=== PATIENT | female | born 1950 | race Caucasian/White ===

== ENCOUNTER 2017-10-03 03:18 | Day surgery (SDC) | payer MEDICARE | END 2017-10-03 22:48 | disposition home or self-care (01) | LOC: MOI US 03:18 | PROC: 0HBV3ZX Excision of Bilateral Breast, Percutaneous Approach, Diagnostic (ICD-10-PCS; principal; 2017-10-03) | DX: D24.1 Benign neoplasm of right breast (principal); N60.92 Unspecified benign mammary dysplasia of left breast; N60.82 Other benign mammary dysplasias of left breast; N60.81 Other benign mammary dysplasias of right breast | CPT/HCPCS: 19083; 19084; 77066; A4648 ==

== ENCOUNTER 2019-05-15 11:48 | Day surgery (SDC) | payer OTHER ==
[~2019-05-15] VITALS: Ht 154.9 cm; Wt 77.2 kg
[~2019-05-15 11:48] MED LIST: ALBU90OI INH; BREO ELLIPTA 11 EACH INH; FIBER GUMMIES1 EACH PO; FLUT1DIS2; Lisinopril2.5 MG PO; MONT10T PO; Multivitamin1 EAC1 PO; PEPCID40 MG; Sudogest60 MG
--- NOTE | 2019-05-15 12:53 | NUR ---
Ambulatory in Day SurgeryPatient states colon prep results clear. History, Chart, Medications and Allergies reviewed before start of procedure.Lungs clear T/O to Auscultation. Pre-Op teaching done. Pt verbalizes understanding. Patient States Post-Procedure ride home has been arranged.
--- NOTE | 2019-05-15 13:38 | NUR ---
05/15/19 1338 Keely Lezama PATIENT DETERMINED TO BE ASA APPROPRIATE FOR PROPOFOL SEDATION PRIOR TO START OF PROCEDURE BY DR. PIERRE. 3-LEAD EKG REVIEWED WITH PHYSICIAN PRIOR TO START OF PROCEDURE. PATIENT CONFIRMS NPO STATUS AND AGREES WITH SCHEDULED PROCEDURE. History, Chart, Medications and Allergies reviewed before start of procedure. O2 VIA N/C INTACT THROUGHOUT SEDATION/PROCEDURE, 4L.MONITOR INTACT WITH CONTINUOUS PULSE OXIMETRY AND INTERMITTENT BP.
== END 2019-05-15 14:57 | disposition home or self-care (01) ==
LOC: ORSCMMR 11:48 → ORD 13:45 → ORSCMMR 13:45
PROVIDERS: Student in an Organized Health Care Education/Training Program
PROC: 0DBM8ZX Excision of Descending Colon, Via Natural or Artificial Opening Endoscopic, Diagnostic (ICD-10-PCS; principal; 2019-05-15 13:45)
PROC: 0DBN8ZX Excision of Sigmoid Colon, Via Natural or Artificial Opening Endoscopic, Diagnostic (ICD-10-PCS; principal; 2019-05-15 13:45)
DX: R19.5 Other fecal abnormalities (principal); K63.5 Polyp of colon; K57.30 Diverticulosis of large intestine without perforation or abscess without bleeding; K64.8 Other hemorrhoids; I10 Essential (primary) hypertension; Z79.899 Other long term (current) drug therapy
CPT/HCPCS: 88305; J2704; J7120

== ENCOUNTER 2021-08-28 09:44 | Day surgery (SDC) | payer OTHER ==
[~2021-08-28 09:44] MED LIST changes: -FLUT1DIS2; +FLUT1DIS2 INH
[2021-09-03] MEDS ORDERED: Calcium Carbon500 MG PO (12:27)
[2021-09-03] MEDS ORDERED: ZYRTEC10 M2 PO (12:27)
[2021-09-03] MEDS ORDERED: VITAMIN B125000 MC1 PO (12:28)
[2021-09-03] MEDS ORDERED: DICLOFENAC SOD100 GM TOP (12:28)
[2021-09-03] MEDS ORDERED: DOCU100 PO (12:28)
[2021-09-03] MEDS ORDERED: NYSTRIT TOP (12:30)
[2021-09-03] MEDS ORDERED: HYDR1TAB94 PO (12:30)
[2021-09-03] MEDS ORDERED: GABA300 PO (12:30)
[2021-09-03] MEDS ORDERED: MIRALAX1712 PO (12:31)
[2021-09-03] MEDS ORDERED: Crestor20 MG PO (12:35)
== END 2021-08-28 22:36 | disposition home or self-care (01) ==
LOC: ORSCMMR 09:44 → MOI US 09:44 → ORSCMMR 10:15 → MOI US 22:36 → ORSCMMR 22:42
DX: N63.10 Unspecified lump in the right breast, unspecified quadrant (principal); Z80.3 Family history of malignant neoplasm of breast
CPT/HCPCS: 19285; 77065; A4648

== ENCOUNTER 2021-09-08 07:10 | Day surgery (SDC) | payer OTHER ==
[~2021-09-08] VITALS: Ht 152.4 cm; Wt 75.4 kg
[~2021-09-08 07:10] MED LIST changes: +Calcium Carbon500 MG PO; +Crestor20 MG PO; +DICLOFENAC SOD100 GM TOP; +DOCU100 PO; +GABA300 PO; +HYDR1TAB94 PO; +MIRALAX1712 PO; +NYSTRIT TOP; +VITAMIN B125000 MC1 PO; +ZYRTEC10 M2 PO
--- NOTE | 2021-09-08 08:12 | NUR ---
History, Chart, Medications and Allergies reviewed before start of procedure. Patient States Post-Procedure ride home has been arranged.
--- NOTE | 2021-09-08 11:34 | NUR ---
Dressing to procedure site clean, dry, intact with no visible drainage, swelling, erythema or bruising noted. Discharge instructions reviewed with patient. Patient verbalizes understanding. Copy given to patient to take home. Discharged via wheelchair to private car for ride home.
== END 2021-09-08 11:36 | disposition home or self-care (01) ==
LOC: ORSCMMR 07:10 → ORD 08:45 → ORSCMMR 08:45
PROVIDERS: Surgery
PROC: 0HBT0ZX Excision of Right Breast, Open Approach, Diagnostic (ICD-10-PCS; principal; 2021-09-08 08:45)
DX: D05.11 Intraductal carcinoma in situ of right breast (principal); Z80.3 Family history of malignant neoplasm of breast; I10 Essential (primary) hypertension; J45.909 Unspecified asthma, uncomplicated; K21.9 Gastro-esophageal reflux disease without esophagitis; Z79.899 Other long term (current) drug therapy
CPT/HCPCS: 88307; J1100; J2250; J2370; J2405; J2704; J3010; J7120

== ENCOUNTER → 2022-07-12 | Outpatient (CLI) | payer OTHER | END | disposition home or self-care (01) | LOC: LAB SHORT 16:06 → LAB 16:06 | DX: N39.0 Urinary tract infection, site not specified (principal) | CPT/HCPCS: 87086 ==

== ENCOUNTER → 2023-02-05 | Outpatient (CLI) | payer OTHER | END | disposition home or self-care (01) | LOC: LAB 09:40 → LAB SHORT 09:40 | DX: N39.0 Urinary tract infection, site not specified (principal) | CPT/HCPCS: 87077; 87086; 87186 ==

== ENCOUNTER 2023-02-09 18:15 | Emergency (ER) | payer OTHER ==
[~2023-02-09] VITALS: Ht 154.9 cm; Wt 72.1 kg
[2023-02-09 19:06] LABS: BASOPHILS ABSOLUTE AUTO 0.02 K/mm3 (0.00-0.23); BASOPHILS PERCENT AUTO 0 % (0-2); EOSINOPHILS ABSOLUTE AUTO 0.05 K/mm3 (0.00-0.68); EOSINOPHILS PERCENT AUTO 1 % (0-6); Hematocrit 39.2 % (33.0-51.0); IMMATURE GRAN ABSOLUTE AUTO 0.03 K/mm3 (0.00-0.10); IMMATURE GRAN PERCENT AUTO 0 % (0-1); LYMPHOCYTES PERCENT AUTO 5 % (21-46); MONOCYTES PERCENT AUTO 13 % (4-13); Mean Corpuscular HGB 31.1 pg (26.0-34.0); Mean Corpuscular HGB Conc 33.2 g/dL (31.5-36.5); Mean Corpuscular Volume 94 fL (80-100); Mean Platelet Volume 10.1 fL (9.1-12.4); NEUTROPHILS ABSOLUTE AUTO 7.21 K/mm3 (1.96-9.15); NEUTROPHILS PERCENT AUTO 82 % (41-73); Platelet Count 119 K/mm3 (150-400); RDW Coefficient Variation 12.3 % (11.7-14.2); RDW Standard Deviation 42.5 fL (35.1-46.3); Red Blood Cell Count 4.18 M/mm3 (3.80-5.20); White Blood Cell Count 8.81 K/mm3 (4.00-11.30)
[2023-02-09 19:24] LABS: Albumin, Blood 3.7 g/dL (3.4-5.0); Albumin/Globulin Ratio 0.9 (0.8-1.8); Bilirubin, Total 0.5 mg/dL (0.1-1.0); Bun/Creatinine Ratio 25.2 (12.0-20.0); Calcium, Blood 8.8 mg/dL (8.5-10.1); Creatinine, Blood 0.87 mg/dL (0.40-1.00); Globulin, Blood 3.9 g/dL (2.2-4.0); Potassium, Blood 3.8 mmol/L (3.5-5.5); Total Protein, Blood 7.6 g/dL (6.4-8.2)
[2023-02-09 23:24] LABS: Magnesium, Blood 2.3 mg/dL (1.6-2.4); Phosphorus, Blood 1.8 mg/dL (2.5-4.9)
[2023-02-10 00:57] VITALS: BP 146/77
[2023-02-10] MEDS ORDERED: ACET500 PO (00:58)
[2023-02-10] MEDS ORDERED: Ibuprofen600 MG PO (00:58)
== END 2023-02-10 01:17 | disposition home or self-care (01) ==
LOC: ER 18:15
PROVIDERS: Student in an Organized Health Care Education/Training Program
DX: U07.1 COVID-19 (principal); E86.0 Dehydration
CPT/HCPCS: 71046; 80053; 83605; 83690; 83735; 84100; 84484; 85025; 85379; 93005; 93010; 96374; 99284-25; A9270; J1100

== ENCOUNTER → 2023-10-19 | Outpatient (CLI) | payer OTHER ==
[~2023-10-19] MED LIST changes: +ACET500 PO; +ANASTROZOLE1 M7; +Ibuprofen600 MG PO; +ROPI.25; +Ventolin5 MG/1 ML
== END | disposition home or self-care (01) ==
LOC: LAB SHORT 15:46 → LAB 15:46
DX: N39.0 Urinary tract infection, site not specified (principal)
CPT/HCPCS: 87086

== ENCOUNTER 2024-04-17 12:33 | Emergency (ER) | payer OTHER ==
[~2024-04-17] VITALS: Ht 154.9 cm; Wt 68.0 kg
[2024-04-17 13:07] VITALS: BP 158/85
[2024-04-17 13:39] LABS: Source, Urine Clean Catch
[2024-04-17 13:56] LABS: Appearance, Urine Hazy (Clear); Blood, Urine 1+ (Neg); Glucose Qualitative, Urine Neg (Neg); Ketones, Urine Neg (Neg); Leukocyte Esterase, Urine 3+ (Neg); Nitrite, Urine Pos (Neg); Protein, Urine 2+ (Neg); Urobilinogen, Urine 4+ (Normal)
[2024-04-17 14:02] LABS: Bilirubin, Urine 3+ (Neg); Color, Urine Orange (P-Yellow)
[2024-04-17 14:08] LABS: Red Blood Cells, Urine 0-2 /hpf (0-2); White Blood Cells, Urine 25-50 /hpf (0-5)
[2024-04-17 14:09] LABS: Bacteria Many /hpf; Hyaline Casts 0-2 /lpf (0-2); Squamous Epithelial Cells Few /hpf (Few)
[2024-04-17] MEDS ORDERED: CEFD300 PO (14:16)
== END 2024-04-17 14:29 | disposition home or self-care (01) ==
LOC: ER 12:33
PROVIDERS: Physician Assistant
DX: N39.0 Urinary tract infection, site not specified (principal); Z79.899 Other long term (current) drug therapy
CPT/HCPCS: 81001; 87077; 87086; 87186; 99283

== ENCOUNTER → 2024-05-01 | Outpatient (CLI) | payer OTHER ==
[~2024-05-01] MED LIST changes: +CEFD300 PO
== END ==
LOC: LAB 09:32 → LAB SHORT 09:32
DX: N39.0 Urinary tract infection, site not specified (principal)
CPT/HCPCS: 87077; 87086; 87186

== ENCOUNTER → 2024-05-21 | Outpatient (CLI) | payer OTHER | LOC: LAB SHORT 17:49 → LAB 17:49 | DX: N39.0 Urinary tract infection, site not specified (principal) | CPT/HCPCS: 87086 ==

== ENCOUNTER → 2024-06-27 | Outpatient (CLI) | payer OTHER ==
[2024-06-27 15:06] LABS: Bacterial Vaginosis PCR Negative (NEGATIVE); Candida Group, PCR NOT DETECTED (NOT DETECT); Candida glabrata-krusei, PCR NOT DETECTED (NOT DETECT)
[2024-06-29 17:47] LABS: MYCOPLASMA GENITALIUM BY PCR Not Detected; MYCOPLASMA HOMINIS BY PCR Not Detected; UREAPLASMA MYCOPLASMA SOURCE Urine; UREAPLASMA PARVUM BY PCR Not Detected; UREAPLASMA UREALYTICUM BY PCR Not Detected
== END ==
LOC: LAB 11:25 → LAB SHORT 11:25
PROVIDERS: Advanced Practice Midwife
DX: N76.0 Acute vaginitis (principal); R30.0 Dysuria
CPT/HCPCS: 81515; 87086; 87563; 87798

== ENCOUNTER → 2025-01-25 | Outpatient (CLI) | payer OTHER | END | disposition home or self-care (01) | LOC: LAB SHORT 15:19 → LAB 15:19 | DX: R30.0 Dysuria (principal) | CPT/HCPCS: 87077; 87086; 87186 ==

== ENCOUNTER 2025-03-17 20:20 | Emergency (ER) | payer OTHER ==
[~2025-03-17] VITALS: Ht 154.9 cm; Wt 68.0 kg
[2025-03-17 20:48] LABS: BASOPHILS ABSOLUTE AUTO 0.02 K/mm3 (0.00-0.23); BASOPHILS PERCENT AUTO 0 % (0-2); EOSINOPHILS ABSOLUTE AUTO 0.12 K/mm3 (0.00-0.68); EOSINOPHILS PERCENT AUTO 2 % (0-6); Hematocrit 41.4 % (33.0-51.0); Hemoglobin 13.8 g/dL (11.5-16.0); IMMATURE GRAN ABSOLUTE AUTO 0.01 K/mm3 (0.00-0.10); IMMATURE GRAN PERCENT AUTO 0 % (0-1); LYMPHOCYTES ABSOLUTE AUTO 1.93 K/mm3 (0.84-5.20); LYMPHOCYTES PERCENT AUTO 25 % (21-46); MONOCYTES ABSOLUTE AUTO 0.80 K/mm3 (0.16-1.47); MONOCYTES PERCENT AUTO 10 % (4-13); Mean Corpuscular HGB Conc 33.3 g/dL (31.5-36.5); Mean Corpuscular Volume 92 fL (80-100); NEUTROPHILS ABSOLUTE AUTO 5.01 K/mm3 (1.96-9.15); NEUTROPHILS PERCENT AUTO 64 % (41-73); NRBC ABSOLUTE 0.00 K/mm3 (0.00-0.02); NRBC Auto 0.0 /100 WBC (0.0-0.2); Platelet Count 166 K/mm3 (150-400); RDW Coefficient Variation 12.6 % (11.7-14.2); RDW Standard Deviation 42.9 fL (35.1-46.3)
[2025-03-17] MEDS ORDERED: NS 1,000 ML IV SCH (21:05)
[2025-03-17 21:08] LABS: Source, Urine Clean Catch
[2025-03-17 21:14] LABS: Alanine Aminotransfer (ALT/SGP 24.0 U/L (12-78); Albumin, Blood 3.9 g/dL (3.4-5.0); Albumin/Globulin Ratio 1.0 (0.8-1.8); Anion Gap 9.0 mmol/L (3-11); Aspartate Aminotrans (AST/SGOT 28.0 U/L (12-37); Bilirubin, Total 0.3 mg/dL (0.1-1.0); Blood Urea Nitrogen 23.0 mg/dL (8-24); CO2, Blood 25.0 mmol/L (21-32); Calcium, Blood 8.8 mg/dL (8.5-10.1); Chloride, Blood 106.0 mmol/L (98-108); Creatinine, Blood 0.8 mg/dL (0.40-1.00); Globulin, Blood 3.9 g/dL (2.2-4.0); Glucose, Blood 113.0 mg/dL (70-99); Magnesium, Blood 2.6 mg/dL (1.6-2.4); Potassium, Blood 4.1 mmol/L (3.5-5.5); Sodium, Blood 136.0 mmol/L (136-145); Thyroid Stimulating Hormone 3.56 uIU/mL (0.360-4.800); Total Protein, Blood 7.8 g/dL (6.4-8.2)
[2025-03-17 21:17] LABS: Bilirubin, Urine Neg (Neg); Glucose Qualitative, Urine Neg (Neg); Ketones, Urine Neg (Neg); Leukocyte Esterase, Urine 2+ (Neg); Protein, Urine Neg (Neg); Specific Gravity, Urine 1.005 (1.003-1.022); Urobilinogen, Urine NORM (Normal)
[2025-03-17 21:24] LABS: Color, Urine Pale Yellow (P-Yellow)
[2025-03-17 21:25] LABS: Red Blood Cells, Urine 0-2 /hpf (0-2)
[2025-03-17] MEDS ORDERED: CEPH500 PO (23:57)
[2025-03-18 00:53] VITALS: BP 122/59
== END 2025-03-18 01:19 | disposition home or self-care (01) ==
LOC: ER 20:20
PROVIDERS: Emergency Medicine
DX: I47.10 Supraventricular tachycardia, unspecified (principal); N39.0 Urinary tract infection, site not specified; Z88.0 Allergy status to penicillin; Z79.899 Other long term (current) drug therapy
CPT/HCPCS: 71045; 71260; 80053; 81001; 83735; 83880; 84443; 84484; 85025; 93005; 93010; 96361; 96374-59; 99285-25; A9270; J0153; J7030; Q9967

== ENCOUNTER 2025-03-31 16:11 | Emergency (ER) | payer OTHER ==
[~2025-03-31] VITALS: Ht 154.9 cm; Wt 66.7 kg
[~2025-03-31 16:11] MED LIST changes: +CEPH500 PO
[2025-03-31] MEDS ORDERED: Diltiazem HCl 5 MG / ML 5ML Vial IV ONE (16:40)
[2025-03-31 17:01] LABS: BASOPHILS ABSOLUTE AUTO 0.02 K/mm3 (0.00-0.23); BASOPHILS PERCENT AUTO 0 % (0-2); EOSINOPHILS ABSOLUTE AUTO 0.12 K/mm3 (0.00-0.68); EOSINOPHILS PERCENT AUTO 2 % (0-6); Hematocrit 43.7 % (33.0-51.0); Hemoglobin 14.5 g/dL (11.5-16.0); IMMATURE GRAN ABSOLUTE AUTO 0.01 K/mm3 (0.00-0.10); IMMATURE GRAN PERCENT AUTO 0 % (0-1); LYMPHOCYTES ABSOLUTE AUTO 1.53 K/mm3 (0.84-5.20); LYMPHOCYTES PERCENT AUTO 20 % (21-46); MONOCYTES ABSOLUTE AUTO 0.70 K/mm3 (0.16-1.47); MONOCYTES PERCENT AUTO 9 % (4-13); Mean Corpuscular HGB Conc 33.2 g/dL (31.5-36.5); Mean Corpuscular Volume 94 fL (80-100); NEUTROPHILS ABSOLUTE AUTO 5.31 K/mm3 (1.96-9.15); NEUTROPHILS PERCENT AUTO 69 % (41-73); NRBC ABSOLUTE 0.00 K/mm3 (0.00-0.02); NRBC Auto 0.0 /100 WBC (0.0-0.2); Platelet Count 175 K/mm3 (150-400); RDW Coefficient Variation 12.6 % (11.7-14.2); RDW Standard Deviation 43.2 fL (35.1-46.3)
[2025-03-31 17:27] LABS: Alanine Aminotransfer (ALT/SGP 25.0 U/L (12-78); Albumin, Blood 4.0 g/dL (3.4-5.0); Albumin/Globulin Ratio 1.0 (0.8-1.8); Anion Gap 10.0 mmol/L (3-11); Aspartate Aminotrans (AST/SGOT 28.0 U/L (12-37); Bilirubin, Total 0.3 mg/dL (0.1-1.0); Blood Urea Nitrogen 25.0 mg/dL (8-24); CO2, Blood 24.0 mmol/L (21-32); Calcium, Blood 8.8 mg/dL (8.5-10.1); Chloride, Blood 107.0 mmol/L (98-108); Creatinine, Blood 0.74 mg/dL (0.40-1.00); Globulin, Blood 3.9 g/dL (2.2-4.0); Glucose, Blood 116.0 mg/dL (70-99); Potassium, Blood 4.0 mmol/L (3.5-5.5); Sodium, Blood 137.0 mmol/L (136-145); Total Protein, Blood 7.9 g/dL (6.4-8.2)
[2025-03-31 17:49] LABS: Magnesium, Blood 2.5 mg/dL (1.6-2.4); Thyroid Stimulating Hormone 4.61 uIU/mL (0.360-4.800)
[2025-03-31 18:29] VITALS: BP 177/61
== END 2025-03-31 18:44 | disposition home or self-care (01) ==
LOC: ER 16:11
PROVIDERS: Emergency Medicine
DX: I47.19 Other supraventricular tachycardia (principal); Z88.0 Allergy status to penicillin; Z79.899 Other long term (current) drug therapy
CPT/HCPCS: 71045; 80053; 83735; 84439; 84443; 84484; 85025; 93005; 93010; 96374; 99285-25

== ENCOUNTER 2025-04-02 17:00 | Emergency (ER) | payer OTHER ==
[~2025-04-02] VITALS: Ht 154.9 cm; Wt 67.1 kg
[2025-04-02] MEDS ORDERED: NS 1,000 ML IV SCH (17:30)
[2025-04-02] MEDS ORDERED: Diltiazem HCl 5 MG / ML 5ML Vial IV ONE (17:30)
[2025-04-02 17:50] LABS: BASOPHILS ABSOLUTE AUTO 0.03 K/mm3 (0.00-0.23); BASOPHILS PERCENT AUTO 0 % (0-2); EOSINOPHILS ABSOLUTE AUTO 0.13 K/mm3 (0.00-0.68); EOSINOPHILS PERCENT AUTO 2 % (0-6); Hematocrit 42.8 % (33.0-51.0); Hemoglobin 14.3 g/dL (11.5-16.0); IMMATURE GRAN ABSOLUTE AUTO 0.02 K/mm3 (0.00-0.10); IMMATURE GRAN PERCENT AUTO 0 % (0-1); LYMPHOCYTES ABSOLUTE AUTO 1.50 K/mm3 (0.84-5.20); LYMPHOCYTES PERCENT AUTO 20 % (21-46); MONOCYTES ABSOLUTE AUTO 0.61 K/mm3 (0.16-1.47); MONOCYTES PERCENT AUTO 8 % (4-13); Mean Corpuscular HGB Conc 33.4 g/dL (31.5-36.5); Mean Corpuscular Volume 92 fL (80-100); NEUTROPHILS ABSOLUTE AUTO 5.42 K/mm3 (1.96-9.15); NEUTROPHILS PERCENT AUTO 70 % (41-73); NRBC ABSOLUTE 0.00 K/mm3 (0.00-0.02); NRBC Auto 0.0 /100 WBC (0.0-0.2); Platelet Count 177 K/mm3 (150-400); RDW Coefficient Variation 12.7 % (11.7-14.2); RDW Standard Deviation 43.3 fL (35.1-46.3)
[2025-04-02 18:19] LABS: Alanine Aminotransfer (ALT/SGP 29.0 U/L (12-78); Albumin, Blood 3.9 g/dL (3.4-5.0); Albumin/Globulin Ratio 1.0 (0.8-1.8); Anion Gap 10.0 mmol/L (3-11); Aspartate Aminotrans (AST/SGOT 31.0 U/L (12-37); Bilirubin, Total 0.4 mg/dL (0.1-1.0); Blood Urea Nitrogen 27.0 mg/dL (8-24); CO2, Blood 25.0 mmol/L (21-32); Calcium, Blood 9.2 mg/dL (8.5-10.1); Chloride, Blood 107.0 mmol/L (98-108); Creatinine, Blood 0.99 mg/dL (0.40-1.00); Globulin, Blood 3.8 g/dL (2.2-4.0); Glucose, Blood 154.0 mg/dL (70-99); Magnesium, Blood 2.6 mg/dL (1.6-2.4); Potassium, Blood 4.2 mmol/L (3.5-5.5); Sodium, Blood 138.0 mmol/L (136-145); Total Protein, Blood 7.7 g/dL (6.4-8.2)
[2025-04-02] MEDS ORDERED: DILTIAZEM 24HR180 M4 PO (18:53)
[2025-04-02 19:30] VITALS: BP 114/69
== END 2025-04-02 19:36 | disposition home or self-care (01) ==
LOC: ER 17:00
PROVIDERS: Emergency Medicine
DX: I47.19 Other supraventricular tachycardia (principal); Z88.0 Allergy status to penicillin; Z79.899 Other long term (current) drug therapy
CPT/HCPCS: 80053; 83735; 83880; 84484; 85025; 93005; 93010; 96361; 96374; 99285-25; J7030